=== PATIENT | male | born 1990 ===

== ENCOUNTER 2017-05-28 02:06 | Emergency (ER) | payer MEDICAID ==
[~2017-05-28] VITALS: Ht 160 cm; Wt 58.0 kg
[2017-05-28] MEDS ORDERED: ACETAMINOPHEN WITH CODEINE 300/30MG TABLET PO ONE (06:45)
[2017-05-28 08:32] VITALS: BP 110/70
== END 2017-05-28 08:34 | disposition home or self-care (01) ==
LOC: ER 02:06
DX: G89.29 Other chronic pain (principal); M25.552 Pain in left hip; M54.5 Low back pain; I10 Essential (primary) hypertension; F41.9 Anxiety disorder, unspecified; F17.200 Nicotine dependence, unspecified, uncomplicated; R10.32 Left lower quadrant pain
CPT/HCPCS: 73502; 99284; Z7610